=== PATIENT | male | born 1985 | race African-American/Black ===

== ENCOUNTER 2024-08-08 04:23 | Emergency (ER) | payer OTHER ==
[~2024-08-08] VITALS: Ht 193 cm; Wt 124.4 kg
[2024-08-08 05:03] VITALS: PULSE 74; RESP 17; TEMP 98.1; O2SAT 97
--- NOTE | 2024-08-08 05:12 | ED.PDOC ---
History of Present Illness HPI Comments 38 y/o M, with a Hx of depression and obesity, presents with c/o headaches, nausea, and generalized bodyaches for the past 4 days. Patient reports persisting symptoms since initial unprovoked and gradual onset, with accompanying cough and diarrhea, yesterday, that has, now subsided on their own. Patient endorses on no further relevant or pertinent Hx in addition to recent stress, injuries, sick contact, travel, spoiled food intake, or substance use/exposure. Patient denies having any dizziness, lightheadedness, weakness, vomiting, urinary symptoms, fever, chills, or other associated symptoms or modifiers at this time. Chief Complaint: Flu like Time Seen by MD: 04:45 Reviewed Notes: Nurses Notes, Medications, Allergies Information Source: Patient Mode of Arrival: Ambulatory Severity: Moderate Timing: Days Duration: Since onset Prehospital treatment: None Past Medical History PAST MEDICAL HISTORY: Depression Past Medical History (Other): obesity Surgical History: Denies all surgeries Family History Family History: Unknown Social History Smoker: Non-Smoker Alcohol: Denies ETOH Use Drugs: Denies Drug Use Lives In: Home Constitutional: denies: chills, diaphoresis, fatigue, fever, malaise, sweats, weakness, others EENTM: denies: blurred vision, double vision, ear bleeding, ear discharge, ear drainage, ear pain, ear ringing, eye pain, eye redness, hearing loss, mouth pain, mouth swelling, nasal discharge, nose bleeding, nose congestion, nose pain, photophobia, tearing, throat pain, throat swelling, voice changes, others Respiratory: denies: cough, hemoptysis, orthopnea, SOB at rest, shortness of breath, SOB with excertion, stridor, wheezing, others Cardiovascular: denies: chest pain, dizzy spells, diaphoresis, Dyspnea on exertion, edema, irregular heart beat, left arm pain, lightheadedness, palpitations, PND, syncope, others Gastrointestinal: reports: nausea; denies: abdomen distended, abdominal pain, blood streaked bowels, constipated, diarrhea, dysphagia, difficulty swallowing, hematemesis, melena, poor appetite, poor fluid intake, rectal bleeding, rectal pain, vomiting, others Genitourinary: denies: burning, dysuria, flank pain, frequency, hematuria, incontinence, penile discharge, penile sore, pain, testicle pain, testicle swelling, urgency, others Neurological: reports: headache; denies: dizziness, fainting, left sided numbness, left sided weakness, numbness, paresthesia, pre-existing deficit, right sided numbness, right sided weakness, seizure, speech problems, tingling, tremors, weakness, others Musculoskeletal: reports: others (bodyaches); denies: back pain, gout, joint pain, joint swelling, muscle pain, muscle stiffness, neck pain Integumetry: denies: bruises, change in color, change in hair/nails, dryness, laceration, lesions, lumps, rash, wounds, others Allergic/Immunocompromised: denies: Difficulty Healing, Frequent Infections, Hives, Itching, others Hematologic/Lymphatic: denies: anemia, blood clots, easy bleeding, easy bruising, swollen glands, others Endocrine: denies: excessive hunger, excessive sweating, excessive thirst, excessive urination, flushing, intolerance to cold, intolerance to heat, unexplained weight gain, unexplained weight loss, others Psychiatric: denies: anxiety, bipolar disorder, depression, hopeless, panic disorder, schizophrenia, sleepless, suicidal, others All Other Systems: Reviewed and Negative Physical Exam General Appearance: No Apparent Distress, Obese HEENT: Normal ENT Inspection, Pharynx Normal, TMs Normal Neck: Full Range of Motion, Non-Tender, Normal, Normal Inspection Respiratory: Chest Non-Tender, Lungs Clear, No Accessory Muscle Use, No Respi ratory Distress, Normal Breath Sounds Cardiovascular: No Edema, No JVD, No Murmur, No Gallop, Normal Peripheral Pulses, Regular Rate/Rhythm Breast Exam: Deferred Gastrointestinal: No Organomegaly, Non Tender, No Pulsatile Mass, Normal Bowel Sounds, Soft Genitalia: Deferred Pelvic: Deferred Rectal: Deferred Extremities: No calf tenderness, Normal capillary refill, Normal inspection, Normal range of motion, Non-tender, No pedal edema Musculoskeletal : Apperance: Normal Neurologic: Alert, family sociologist II-XII nml as Tested, No Motor Deficits, Normal Affect, Normal Mood, No Sensory Deficits Cerebellar Function: Normal Reflexes: Normal Skin: Dry, Normal Color, Warm Lymphatic: No Adenopathy Was a procedure done? Was a procedure done?: No Differential Dx Considerations may include: migraines, Covid19, URI, viral syndrome X-Ray, Labs, Meds, VS Vital Signs Date Time Temp Pulse Resp B/P (MAP) Pulse Ox O2 Delivery O2 Flow Rate FiO2 08/08/24 05:03 98.1 74 17 122/63 (82) 97 98.1 08/08/24 05:03 74 17 97 Room Air* 0 21 08/08/24 04:39 98.2 77 18 139/76 (97) 98 Lab Test 08/08/24 05:00 Range/Units Influenza Type A Antigen Negative Negative Influenza Type B Antigen Negative Negative SARS-CoV-2 Antigen (Rapid) Negative NEGATIVE Current Medications Medications (Trade) Dose Ordered Sig/Maria E Route Start Time Stop Time Status Last Admin Ondansetron HCl (Zofran Po) 4 mg ONCE ONCE PO 08/08/24 04:45 08/08/24 04:46 DC 08/08/24 05:20 Ketorolac Tromethamine (Toradol Injection) 15 mg ONCE ONCE IM 08/08/24 04:45 08/08/24 04:46 DC 08/08/24 05:28 Acetaminophen (Tylenol Tablet) 650 mg ONCE ONCE PO 08/08/24 04:45 08/08/24 04:46 DC 08/08/24 05:19 Time of 1ST Reevaluation: 05:15 Reevaluation 1ST: Unchanged Patient Education/Counseling: Diagnosis, Treatment Family Education/Counseling: No Family Present Departure 1 Departure Time of Disposition: 05:56 (Patient likely with a viral syndrome. Flu and COVI D was negative. Patient also with a pulmonary nodule we will advise patient for follow up.) Impression: Primary Impression: Acute viral syndrome Additional Impression: Pulmonary nodule Disposition: 01 HOME / SELF CARE / HOMELESS Condition: Stable Additional Instructions: You likely have a viral illness. Your covid and flu test were negative. It is important to stay well rested and well hydrated. You can take Tylenol and Motrin as needed for pain and fever. For a sore throat you can drink warm tea with honey. You can take [id number] pseudoephedrine for nasal congestion. You did have a 11mm pulmonary nodule on your x-ray. This is an area of inflamation. This can be caused from many different reasons including viruses. You should follow up with your primary care doctor within one month to schedule you for an outpatient ct scan of your chest to ensure the nodule has resolved. You should follow up with your regular doctor within 1 week to ensure you are doing better. If your symptoms worsen or you have any other concerns please return to the emergency room. Discharged With: Self Critical Care Note Critical Care Time?: No Stability Stability form required: No Heart Score Heart Score: Heart Score Response (Comments) Value History N/A 0 EKG N/A 0 Age N/A 0 Risk Factors N/A 0 Troponin N/A 0 Total 0 I personally scribed for CHRISTIN GREEN MD ([email or web address]) on 08/08/24 at 05:12. Electronically submitted by David Shore ([email or web address]). CHRISTIN RGEEN MD Aug 08, 2024 05:12
[2024-08-08] MEDS: ACETAMINOPHEN 325 MG TAB PO ONE (05:19)
[2024-08-08] MEDS: ONDANSETRON ODT 4 MG TAB PO ONE (05:20)
[2024-08-08] MEDS: KETOROLAC TROMETH 30 MG/ML 1ML VIAL IM ONE (05:28)
--- NOTE | 2024-08-08 05:40 | DVH ---
XY CHEST TWO VIEWS ROUTINE CLINICAL HISTORY: cough COMPARISON: None TECHNIQUE: Frontal and lateral view of the chest was obtained FINDINGS: Lines and Tubes: None Lungs: No focal consolidation. 11 mm left upper lobe pulmonary nodule. Pleura: No effusion. No pneumothorax. Cardiomediastinal contours: Unremarkable Bones: No acute osseous abnormality. IMPRESSION: 1. No acute cardiopulmonary disease. 11 mm left upper lobe pulmonary nodule. Noncontrast chest CT may be obtained for further evaluation.
[2024-08-08 05:43] LABS: COVID19 ANTIGEN SOFIA FIA NEGATIVE (NEGATIVE); Rapid Influenza A Negative (Negative); Rapid Influenza B Negative (Negative)
[2024-08-08 06:02] VITALS: BP 123/72; PULSE 71; RESP 17; O2SAT 97
== END 2024-08-08 06:30 | disposition home or self-care (01) ==
LOC: ER 04:23
DX: B34.9 Viral infection, unspecified (principal); R91.1 Solitary pulmonary nodule; F32.9 Major depressive disorder, single episode, unspecified; E66.9 Obesity, unspecified; Z68.33 Body mass index [BMI] 33.0-33.9, adult; Z20.822 Contact with and (suspected) exposure to COVID-19
CPT/HCPCS: 36415; 71046; 87426; 87804; 96372; 99284; J1885; Q0162